=== PATIENT | male | born 1975 | race African-American/Black ===

== ENCOUNTER 2016-12-15 12:10 | Inpatient (IN) | payer BC ==
[2016-12-15 13:11] VITALS: BMI 26.7
--- NOTE | 2016-12-15 14:45 | HP ---
CIWA Score - CIWA Score Nausea/Vomitin Muscle Tremors: 2 Anxiety: 3 Agitation: 2 Paroxysmal Sweats: 3 Orientation: 0-Oriented Tacttile Disturbances: 1-Very Mild Itch/Numbness Auditory Disturbances: 0-None Visual Disturbances: 0-None Headache: 2-Mild CIWA-Ar Total Score: 15 Admission ROS BHS - HPI Chief Complaint: I need to stop using drugs and i need help. Allergies/Adverse Reactions: Allergies Allergy/AdvReac Type Severity Reaction Status Date / Time No Known Allergies Allergy Verified 12/15/16 14:26 History of Present Illness: 41 y/o m pt with h/o chronic alcoholism , pcp, cocaine use seeking detox. Exam Limitations: No Limitations - Ebola screening Have you traveled outside of the country in the last 21 days: No Have you had contact with anyone from an Ebola affected area: No Have you been sick,other than usual withdrawal symptoms: No Do you have a fever: No - Review of Systems Constitutional: Loss of Appetite, Malaise, Night Sweats, Changes in sleep EENT: reports: Blurred Vision Respiratory: reports: SOB with Exertion Cardiac: reports: Irregular Heart Rate GI: reports: Nausea : reports: No Symptoms Reported Musculoskeletal: reports: Back Pain Integumentary: reports: No Symptoms Reported Neuro: reports: Headache Endocrine: reports: No Symptoms Reported Hematology: reports: No Symptoms Reported Psychiatric: reports: Agitated, Anxious, Depressed Other Systems: Reviewed and Negative Patient History - Patient Medical History Hx Anemia: No Hx Asthma: No Hx Chronic Obstructive Pulmonary Disease (COPD): No Hx Cancer: No Hx Cardiac Disorders: No Hx Congestive Heart Failure: No Hx Hypertension: Yes (Pt has been non compliant) Hx Hypercholesterolemia: No Hx Pacemaker: No HX Cerebrovascular Accident: No Hx Seizures: No Hx Dementia: No Hx Diabetes: No Hx Gastrointestinal Disorders: No Hx Liver Disease: No Hx Genitourinary Disorders: No Hx Sexually Transmitted Disorders: No Hx Renal Disease (ESRD): No Hx Thyroid Disease: No Hx Human Immunodeficiency Virus (HIV): No Hx Hepatitis C: No Hx Depression: Yes Hx Suicide Attempt: Yes Hx Bipolar Disorder: Yes Hx Schizophrenia: Yes - Patient Surgical History Past Surgical History: Yes Hx Neurologic Surgery: No Hx Cataract Extraction: No Hx Cardiac Surgery: No Hx Lung Surgery: No Hx Breast Surgery: No Hx Breast Biopsy: No Hx Abdominal Surgery: No Hx Appendectomy: No Hx Cholecystectomy: No Hx Genitourinary Surgery: No Hx Section: No Hx Orthopedic Surgery: Yes (rods placed in R upper leg 2008) Anesthesia Reaction: No - PPD History Previous Implant?: Yes Documented Results: Positive w/proof Implanted On Prior R Admission?: No - Reproductive History Patient is a Female of Child Bearing Age (11 -55 yrs old): No - Smoking Cessation Smoking history: Current every day smoker Have you smoked in the past 12 months: Yes Aproximately how many cigarettes per day: 10 Cigars Per Day: 0 Hx Chewing Tobacco Use: No Initiated information on smoking cessation: Yes 'Breaking Loose' booklet given: 12/15/16 - Substance & Tx. History Hx Alcohol Use: Yes Hx Substance Use: Yes Substance Use Type: Alcohol, Cocaine Hx Substance Use Treatment: Yes - Substances Abused Alcohol Route: Oral Frequency: Daily Amount used: 12PK BEER/ FIFTH-cognac Age of first use: 14 Date of Last Use: 12/15/16 PCP Route: Smoking Frequency: Daily Amount used: 2 BAGS Age of first use: 15 Date of Last Use: 12/13/16 Cocaine Route: Inhalation Frequency: Daily Amount used: 1/2 GRAM Age of first use: 15 Date of Last Use: 12/15/16 Family Disease History - Family Disease History Family Disease History: Heart Disease: Mother (HTN; cardiac disease), Other: Sister (breast) Admission Physical Exam BHS - Vital Signs Vital Signs: Vital Signs - 24 hr 12/15/16 13:08 Temperature 97.9 F Pulse Rate 117 H Respiratory 20 Rate Blood Pressure 140/101 41 y/o m pt aox3 , anxious , but cooperative with exam ,, - Physical General Appearance: Yes: Disheveled, Tremorous, Sweating, Anxious HEENTM: Yes: EOMI, Hearing grossly Normal, Normocephalic, Normal Voice, JOSE Respiratory: Yes: Chest Non-Tender, Lungs Clear, Normal Breath Sounds, No Respiratory Distress Neck: Yes: Supple, Trachea in good position Breast: Yes: Within Normal Limits Cardiology: Yes: Regular Rhythm, S1, S2, Tachycardia Abdominal: Yes: Non Tender, Soft, Increased Bowel Sounds, Protuberent Genitourinary: Yes: Within Normal Limits Back: Yes: Decreased Range of Motion Musculoskeletal: Yes: Back pain Extremities: Yes: Tremors Neurological: Yes: handkerchief presser II-XII NML intact, Fully Oriented, Alert, Motor Strength 5/5, Normal Response Integumentary: Yes: Diaphoresis, Other (multiple tatoos overe head, face , body) Lymphatic: Yes: Within Normal Limits - Diagnostic (1) Alcohol dependence with uncomplicated withdrawal Current Visit: Yes Status: Chronic (2) PCP dependence Current Visit: Yes Status: Chronic (3) Cocaine dependence Current Visit: Yes Status: Chronic Qualifiers: Substance use status: uncomplicated Qualified Code(s): F14.20 - Cocaine dependence, uncomplicated (4) Hypertension Current Visit: Yes Status: Chronic Qualifiers: Hypertension type: essential hypertension Qualified Code(s): I10 - Essential (primary) hypertension (5) Nicotine dependence Current Visit: Yes Status: Chronic Qualifiers: Nicotine product type: cigarettes Substance use status: uncomplicated Qualified Code(s): F17.210 - Nicotine dependence, cigarettes, uncomplicated (6) Schizophrenia Current Visit: Yes Status: Chronic Qualifiers: Schizophrenia type: unspecified Qualified Code(s): F20.9 - Schizophrenia, unspecified Cleared for Admission [facility] - Detox or Rehab [facility] Level of Care: Medically Managed Detox Regimen/Protocol: Librium [facility] Breath Alcohol Content Breath Alcohol Content: 0.083 Urine Drug Screen - Results Drug Screen Negative: No Urine Drug Screen Results: OLEG-Cocaine, PCP-Phencyclidine
[2016-12-15] MEDS ORDERED: MAGNESIUM CITRATE 300 ML BOTTLE PO PRN (15:03)
[2016-12-15] MEDS ORDERED: MAGNESIUM HYDROX 2400MG/30ML ORAL SUSPENSION 30 ML CUP PO PRN (15:03)
[2016-12-15] MEDS ORDERED: guaiFENesin/D-METHORPHAN HB 10 ML UNIT-DOSE CUPS PO PRN (15:03)
[2016-12-15] MEDS ORDERED: MENTHOL/PHENOL 1 EACH UD MM PRN (15:03)
[2016-12-15] MEDS ORDERED: P-EPHED 60MG/TRIPROLIDI 2.5MG TABLET PO PRN (15:03)
[2016-12-15] MEDS ORDERED: MAG HYDROX/AL HYDROX/SIMETH 30 ML UNIT-DOSE CUP PO PRN (15:03)
[2016-12-15] MEDS ORDERED: IBUPROFEN 400 MG TABLET (FP) PO PRN (15:03)
[2016-12-15] MEDS ORDERED: chlordiazePOXIDE HCL 25 MG CAPSULE PO PRN (15:03)
[2016-12-15] MEDS ORDERED: ACETAMINOPHEN 325 MG TABLET (FP) PO PRN (15:03)
[2016-12-15] MEDS ORDERED: LOPERAMIDE HCL 2 MG CAPSULE PO PRN (15:03)
[2016-12-15] MEDS ORDERED: hydrOXYzine PAMOATE 25 MG CAPSULE (FP) PO PRN (15:03)
[2016-12-15] MEDS ORDERED: NICOTINE POLACRILEX 4 MG GUM BUC PRN (15:03)
[2016-12-15] MEDS: chlordiazePOXIDE HCL 25 MG CAPSULE PO SCH ×2 (18:15→22:17)
[2016-12-15 19:50] LABS: URINE APPEARANCE CLEAR; URINE BILIRUBIN NEGATIVE (NEGATIVE); URINE COLOR STRAW; URINE GLUCOSE (UA) NEGATIVE (NEGATIVE); URINE KETONE NEGATIVE (NEGATIVE); URINE LEUK ESTERASE NEGATIVE (NEGATIVE); URINE NITRITE NEGATIVE (NEGATIVE); URINE PROTEIN NEGATIVE (NEGATIVE); URINE UROBILINOGEN NEGATIVE E.U./dl (0.2-1.0)
[2016-12-15 20:02] LABS: URINE BLOOD 2+ (NEGATIVE)
[2016-12-15 20:23] LABS: URINE RBC 1 /hpf (0-3); URINE WBC <1 /hpf (3-5)
[2016-12-15] MEDS: diphenhydrAMINE HCL 50 MG CAPSULE PO PRN (22:17)
[2016-12-15] MEDS: THIAMINE HCL 100 MG TABLET (FP) PO SCH (22:17)
[2016-12-16] MEDS: chlordiazePOXIDE HCL 25 MG CAPSULE PO SCH ×4 (05:29→22:16)
[2016-12-16 10:00] LABS: MCH 28.5 pg (25.7-33.7); MCHC 32.7 g/dl (32.0-35.9); MEAN PLT VOLUME 8.3 fl (7.5-11.1); PLATELET COUNT 255 K/MM3 (134-434); RDW 14.7 % (11.9-15.9); WHITE BLOOD COUNT 8.7 K/mm3 (4.0-10.0)
[2016-12-16 10:01] LABS: ANION GAP 11 (8-16); CALCIUM 9.4 mg/dL (8.5-10.1); CO2 30 mmol/L (21-32); GLUCOSE,RANDOM 86 mg/dL (74-106)
[2016-12-16 10:06] LABS: ALK PHOS 87 U/L (45-117); BILIRUBIN,TOTAL 0.4 mg/dL (0.2-1.0); CREATININE 1.2 mg/dL (0.7-1.3); SGOT/AST 28 U/L (15-37); SGPT/ALT 28 U/L (12-78); TOT PROT 8.7 g/dl (6.4-8.2)
--- NOTE | 2016-12-16 10:11 | EKG ---
Test Reason : Blood Pressure : / mmHG Vent. Rate : 102 BPM Atrial Rate : 102 BPM P-R Int : 150 ms QRS Dur : 084 ms QT Int : 354 ms P-R-T Axes : 037 050 020 degrees QTc Int : 461 ms SINUS TACHYCARDIA MINIMAL VOLTAGE CRITERIA FOR LVH, MAY BE NORMAL VARIANT BORDERLINE ECG NO PREVIOUS ECGS AVAILABLE Confirmed by SACHA ARREDONDO, EUGENE ([id number]) on 12/16/2016 10:11:10 AM Referred By: Confirmed By:EUGENE GONCALVES MD
[2016-12-16] MEDS: amLODIPine BESYLATE 2.5 MG TABLET (FP) PO SCH (10:18)
[2016-12-16] MEDS: NICOTINE 21 MG/24 HOURS TOPICAL PATCH TD SCH (10:18)
[2016-12-16] MEDS: PRENATAL VITAMINS W/ FOLIC ACID TABLET (FP) PO SCH (10:18)
--- NOTE | 2016-12-16 15:12 | PN ---
S CIWA - CIWA Score Nausea/Vomitin-No Nausea/No Vomiting Muscle Tremors: 4-Moderate,w/Arms Extend Anxiety: 4-Mod. Anxious/Guarded Agitation: 4-Moderately Restless Paroxysmal Sweats: 3 Orientation: 0-Oriented Tacttile Disturbances: 0-None Auditory Disturbances: 0-None Visual Disturbances: 0-None Headache: 0-None Present CIWA-Ar Total Score: 15 BHS Progress Note (SOAP) Subjective: Anxiety,tremors,sweating,interrupted sleep,restless. Objective: 12/16/16 15:11 Vital Signs - 8 hr 12/16/16 12/16/16 09:27 13:02 Temperature 97.6 F 97.2 F L Pulse Rate 113 H 94 H Respiratory 20 18 Rate Blood Pressure 117/70 145/82 Laboratory Tests 12/15/16 12/16/16 12/16/16 19:37 06:00 06:00 WBC 8.7 D RBC 5.25 D Hgb 15.0 D Hct 45.7 D MCV 87.0 MCHC 32.7 RDW 14.7 Plt Count 255 MPV 8.3 Sodium 140 Potassium 3.7 Chloride 99 Carbon Dioxide 30 Anion Gap 11 BUN 7 D Creatinine 1.2 Creat Clearance w eGFR > 60 Random Glucose 86 Calcium 9.4 Total Bilirubin 0.4 D AST 28 D ALT 28 D Alkaline Phosphatase 87 Total Protein 8.7 H D Albumin 4.0 D Urine Color Straw Urine Appearance Clear Urine pH 5.0 Ur Specific [place] 1.003 Urine Protein Negative Urine Glucose (UA) Negative Urine Ketones Negative Urine Blood 2+ H Urine Nitrite Negative Urine Bilirubin Negative Urine Urobilinogen Negative Ur Leukocyte Esterase Negative Urine RBC 1 Urine WBC <1 Ur Epithelial Cells Rare RPR Titer 12/16/16 06:00 WBC RBC Hgb Hct MCV MCHC RDW Plt Count MPV Sodium Potassium Chloride Carbon Dioxide Anion Gap BUN Creatinine Creat Clearance w eGFR Random Glucose Calcium Total Bilirubin AST ALT Alkaline Phosphatase Total Protein Albumin Urine Color Urine Appearance Urine pH Ur Specific [place] Urine Protein Urine Glucose (UA) Urine Ketones Urine Blood Urine Nitrite Urine Bilirubin Urine Urobilinogen Ur Leukocyte Esterase Urine RBC Urine WBC Ur Epithelial Cells RPR Titer Nonreactive labs noted Assessment: 12/16/16 15:12 Withdrawal sx. Plan: Continue detox
--- NOTE | 2016-12-16 17:00 | CONSULT ---
[facility] Psychiatric Consult - Data Date of interview: 12/16/16 Admission source: [facility] Identifying data: Another admission to [facility] for this 41 y/o AA male seeking detox treatment on for alcohol,phencyclidine and cocaine dependence.Patient is ,a father of five,currently homeless,unemployed and supported on [employer] benefits. Substance Abuse History: - Smoking Cessation. Smoking history: Current every day smoker. Have you smoked in the past 12 months: Yes. Aproximately how many cigarettes per day: 10. Cigars Per Day: 0. Hx Chewing Tobacco Use: No. Initiated information on smoking cessation: Yes. 'Breaking Loose' booklet given : 12/15/16. - Substance & Tx. History. Hx Alcohol Use: Yes. Hx Substance Use : Yes. Substance Use Type: Alcohol, Cocaine. Hx Substance Use Treatment: Yes. - Substances Abused. Alcohol. Route: Oral. Frequency: Daily. Amount used: 12PK BEER/ FIFTH-cognac. Age of first use: 14. Date of Last Use: . PCP. Route: Smoking. Frequency: Daily. Amount used: 2 BAGS. Age of first use: 15. Date of Last Use: 12/13/16. Cocaine. Route: Inhalation. Frequency: Daily. Amount used: 1/2 GRAM. Age of first use: 15. Date of Last Use: 12/15/16. Confirmed by patient. Medical History: Hypertension and a history of orthosurgery for injury to right leg in 2007 (hardware in situ). Psychiatric History: History of multiple psychiatric hospitalizations.Diagnosed with "bipolar disorder and schizophrenia".Known to [facility] and [facility].Lost to follow up for several months.Non-adherence to aftercare.Mr Almazan states that he has not taken his haldol decanoate injection for several months (no recall of date of last injection).Patient reports that he is currently on risperdal and trazodone (doses not remembered) .He endorses complaint of chronic insomnia and he requests 50mg of trazodone at bedtime.Mr Almazan admits to a remote history of suicidal ideation hat did not escalate into a suicide attempt. Physical/Sexual Abuse/Trauma History: Patient denies. Additional Comment: Urine Drug Screen Results: OLEG-Cocaine, PCP- Phencyclidine.Noted. Mental Status Exam - Mental Status Exam Alert and Oriented to: Time, Place, Person Cognitive Function: Good Patient Appearance: Disheveled Mood: Apprehensive, Hopeful Affect: Mood Congruent Patient Behavior: Fatigued, Appropriate, Cooperative Speech Pattern: Clear, Appropriate Voice Loudness: Normal Thought Process: Goal Oriented Thought Disorder: Not Present Hallucinations: Denies Suicidal Ideation: Denies Homicidal Ideation: Denies Insight/Judgement: Poor Sleep: Poorly, Difficulty falling asleep Appetite: Good Muscle strength/Tone: Normal Gait/Station: Normal Psychiatric Findings - Problem List ([place] 1, 2,3) (1) Alcohol dependence with uncomplicated withdrawal Current Visit: Yes Status: Acute (2) Cocaine dependence Current Visit: Yes Status: Acute Qualifiers: Substance use status: uncomplicated Qualified Code(s): F14.20 - Cocaine dependence, uncomplicated (3) Nicotine dependence Current Visit: Yes Status: Acute Qualifiers: Nicotine product type: cigarettes Substance use status: uncomplicated Qualified Code(s): F17.210 - Nicotine dependence, cigarettes, uncomplicated (4) PCP dependence Current Visit: Yes Status: Acute (5) Schizophrenia Current Visit: Yes Status: Chronic Qualifiers: Schizophrenia type: unspecified Qualified Code(s): F20.9 - Schizophrenia, unspecified (6) Hypertension Current Visit: Yes Status: Chronic Qualifiers: Hypertension type: essential hypertension Qualified Code(s): I10 - Essential (primary) hypertension (7) Insomnia Current Visit: Yes Status: Acute - Initial Treatment Plan Initial Treatment Plan: Psychoeducation.Detoxification.Medications : trazodone 50 mg po hs + risperdal 1 mg po bid.Side effects/benefits discussed with this patient.Made aware of risk for priapism (trazodone),abnormal involuntary movements,EPS (akathisia,akinesia,dystonias,dyskinesias),endocrine complications (sexual impotence,galactorrhea,gynecomastia),metabolic syndrome ( risperdal).Patient waives these risks and agrees to follow this careplan.Observation.
[2016-12-16] MEDS: traZODone HCL 50 MG TABLET (FP) PO SCH (22:16)
[2016-12-16] MEDS: risperiDONE 1 MG TABLET (FP) PO SCH (22:16)
[2016-12-16] MEDS: THIAMINE HCL 100 MG TABLET (FP) PO SCH (22:16)
[2016-12-16] MEDS: diphenhydrAMINE HCL 50 MG CAPSULE PO PRN (22:17)
[2016-12-17] MEDS: chlordiazePOXIDE HCL 25 MG CAPSULE PO SCH ×2 (05:45→10:35)
--- NOTE | 2016-12-17 10:23 | PN ---
S CIWA - CIWA Score Nausea/Vomitin-Mild Nausea/No Vomiting Muscle Tremors: 4-Moderate,w/Arms Extend Anxiety: 4-Mod. Anxious/Guarded Agitation: 3 Paroxysmal Sweats: 3 Orientation: 0-Oriented Tacttile Disturbances: 0-None Auditory Disturbances: 0-None Visual Disturbances: 0-None Headache: 0-None Present CIWA-Ar Total Score: 15 BHS Progress Note (SOAP) Subjective: Anxiety,sweating,interrupted sleep,restless Objective: 12/17/16 10:23 Vital Signs - 8 hr 12/17/16 12/17/16 12/17/16 03:30 06:23 09:12 Temperature 95.2 F L 96 F L Pulse Rate 94 H 103 H Respiratory 18 18 18 Rate Blood Pressure 133/84 128/76 Laboratory Tests 12/15/16 12/16/16 12/16/16 19:37 06:00 06:00 WBC 8.7 D RBC 5.25 D Hgb 15.0 D Hct 45.7 D MCV 87.0 MCHC 32.7 RDW 14.7 Plt Count 255 MPV 8.3 Sodium 140 Potassium 3.7 Chloride 99 Carbon Dioxide 30 Anion Gap 11 BUN 7 D Creatinine 1.2 Creat Clearance w eGFR > 60 Random Glucose 86 Calcium 9.4 Total Bilirubin 0.4 D AST 28 D ALT 28 D Alkaline Phosphatase 87 Total Protein 8.7 H D Albumin 4.0 D Urine Color Straw Urine Appearance Clear Urine pH 5.0 Ur Specific [place] 1.003 Urine Protein Negative Urine Glucose (UA) Negative Urine Ketones Negative Urine Blood 2+ H Urine Nitrite Negative Urine Bilirubin Negative Urine Urobilinogen Negative Ur Leukocyte Esterase Negative Urine RBC 1 Urine WBC <1 Ur Epithelial Cells Rare RPR Titer 12/16/16 06:00 WBC RBC Hgb Hct MCV MCHC RDW Plt Count MPV Sodium Potassium Chloride Carbon Dioxide Anion Gap BUN Creatinine Creat Clearance w eGFR Random Glucose Calcium Total Bilirubin AST ALT Alkaline Phosphatase Total Protein Albumin Urine Color Urine Appearance Urine pH Ur Specific [place] Urine Protein Urine Glucose (UA) Urine Ketones Urine Blood Urine Nitrite Urine Bilirubin Urine Urobilinogen Ur Leukocyte Esterase Urine RBC Urine WBC Ur Epithelial Cells RPR Titer Nonreactive labs noted Assessment: 12/17/16 10:23 Withdrawal sx. Plan: Continue detox
[2016-12-17] MEDS: risperiDONE 1 MG TABLET (FP) PO SCH ×2 (10:35→22:20)
[2016-12-17] MEDS: PRENATAL VITAMINS W/ FOLIC ACID TABLET (FP) PO SCH (10:35)
[2016-12-17] MEDS: amLODIPine BESYLATE 2.5 MG TABLET (FP) PO SCH (10:35)
[2016-12-17] MEDS: NICOTINE 21 MG/24 HOURS TOPICAL PATCH TD SCH (10:35)
[2016-12-17] MEDS: chlordiazePOXIDE 5 MG CAPSULE PO SCH ×2 (17:24→22:20)
[2016-12-17] MEDS: traZODone HCL 50 MG TABLET (FP) PO SCH (22:19)
[2016-12-17] MEDS: THIAMINE HCL 100 MG TABLET (FP) PO SCH (22:19)
[2016-12-18] MEDS: chlordiazePOXIDE 5 MG CAPSULE PO SCH ×2 (05:30→10:22)
[2016-12-18] MEDS: NICOTINE 21 MG/24 HOURS TOPICAL PATCH TD SCH (10:22)
[2016-12-18] MEDS: risperiDONE 1 MG TABLET (FP) PO SCH ×2 (10:22→22:19)
[2016-12-18] MEDS: amLODIPine BESYLATE 2.5 MG TABLET (FP) PO SCH (10:22)
[2016-12-18] MEDS: PRENATAL VITAMINS W/ FOLIC ACID TABLET (FP) PO SCH (10:22)
--- NOTE | 2016-12-18 10:54 | PN ---
BHS Progress Note (SOAP) Subjective: DECREASED ANXIETY,SWEATS,TREMORS. Objective: 12/18/16 10:54 Vital Signs Temperature 95.8 F L 12/18/16 10:37 Pulse Rate 95 H 12/18/16 10:37 Respiratory Rate 20 12/18/16 10:37 Blood Pressure 141/82 12/18/16 10:37 O2 Sat by Pulse Oximetry (%) Assessment: 12/18/16 10:54 WITHDRAWAL SX Plan: CONTINUE DETOX
[2016-12-18] MEDS: chlordiazePOXIDE HCL 10 MG CAPSULE PO SCH ×2 (17:21→22:20)
[2016-12-18] MEDS: THIAMINE HCL 100 MG TABLET (FP) PO SCH (22:19)
[2016-12-18] MEDS: traZODone HCL 50 MG TABLET (FP) PO SCH (22:20)
[2016-12-19] MEDS: chlordiazePOXIDE HCL 10 MG CAPSULE PO SCH (05:32)
[2016-12-19 09:41] VITALS: BP 139/75; PULSE 105; TEMP 97.1
--- NOTE | 2016-12-19 09:44 | DS ---
[facility] Detox Discharge Summary Admission Date: 12/15/16 Discharge Date: 12/19/16 - History Present History: Alcohol Dependence, Cocaine Dependence Pertinent Past History: HTN Schizophrenia - Physical Exam Results Vital Signs: Vital Signs Temperature 97.1 F L 12/19/16 09:40 Pulse Rate 105 H 12/19/16 09:40 Respiratory Rate 18 12/19/16 09:40 Blood Pressure 139/75 12/19/16 09:40 O2 Sat by Pulse Oximetry (%) Pertinent Admission Physical Exam Findings: Withdrawal sx. Laboratory Last Values WBC 8.7 K/mm3 (4.0-10.0) D 12/16/16 06:00 RBC 5.25 M/mm3 (4.00-5.60) D 12/16/16 06:00 Hgb 15.0 GM/dL (11.7-16.9) D 12/16/16 06:00 Hct 45.7 % (35.4-49) D 12/16/16 06:00 MCV 87.0 fl (80-96) 12/16/16 06:00 MCHC 32.7 g/dl (32.0-35.9) 12/16/16 06:00 RDW 14.7 % (11.9-15.9) 12/16/16 06:00 Plt Count 255 K/MM3 (134-434) 12/16/16 06:00 MPV 8.3 fl (7.5-11.1) 12/16/16 06:00 Sodium 140 mmol/L (136-145) 12/16/16 06:00 Potassium 3.7 mmol/L (3.5-5.1) 12/16/16 06:00 Chloride 99 mmol/L (98-107) 12/16/16 06:00 Carbon Dioxide 30 mmol/L (21-32) 12/16/16 06:00 Anion Gap 11 (8-16) 12/16/16 06:00 BUN 7 mg/dL (7-18) D 12/16/16 06:00 Creatinine 1.2 mg/dL (0.7-1.3) 12/16/16 06:00 Creat Clearance w eGFR > 60 (>60) 12/16/16 06:00 Random Glucose 86 mg/dL (74-106) 12/16/16 06:00 Calcium 9.4 mg/dL (8.5-10.1) 12/16/16 06:00 Total Bilirubin 0.4 mg/dL (0.2-1.0) D 12/16/16 06:00 AST 28 U/L (15-37) D 12/16/16 06:00 ALT 28 U/L (12-78) D 12/16/16 06:00 Alkaline Phosphatase 87 U/L (45-117) 12/16/16 06:00 Total Protein 8.7 g/dl (6.4-8.2) H D 12/16/16 06:00 Albumin 4.0 g/dl (3.4-5.0) D 12/16/16 06:00 Urine Color Straw 12/15/16 19:37 Urine Appearance Clear 12/15/16 19:37 Urine pH 5.0 (5.0-8.0) 12/15/16 19:37 Ur Specific [place] 1.003 (1.001-1.035) 12/15/16 19:37 Urine Protein Negative (NEGATIVE) 12/15/16 19:37 Urine Glucose (UA) Negative (NEGATIVE) 12/15/16 19:37 Urine Ketones Negative (NEGATIVE) 12/15/16 19:37 Urine Blood 2+ (NEGATIVE) H 12/15/16 19:37 Urine Nitrite Negative (NEGATIVE) 12/15/16 19:37 Urine Bilirubin Negative (NEGATIVE) 12/15/16 19:37 Urine Urobilinogen Negative E.U./dl (0.2-1.0) 12/15/16 19:37 Ur Leukocyte Esterase Negative (NEGATIVE) 12/15/16 19:37 Urine RBC 1 /hpf (0-3) 12/15/16 19:37 Urine WBC <1 /hpf (3-5) 12/15/16 19:37 Ur Epithelial Cells Rare /hpf (FEW) 12/15/16 19:37 RPR Titer Nonreactive (NONREACTIVE) 12/16/16 06:00 labs noted - Treatment Hospital Course: Detox Protocol Followed, Detoxed Safely, Responded well, Discharged Condition Good, Rehab Referral Accepted - Medication Discharge Medications: Ambulatory Orders Haloperidol Decanoate [Haldol Decanoate (Long-Acting) -] 250 mg IM MONTHLY 03/28 Amlodipine Besylate [Norvasc -] 2.5 mg PO DAILY #0 tablet 08/07/16 Risperidone [Risperdal] 3 mg PO BID 12/15/16 Trazodone HCl [Desyrel -] 150 mg PO HS 12/15/16 - Diagnosis (1) Alcohol dependence with uncomplicated withdrawal Current Visit: Yes Status: Acute (2) Cocaine dependence Current Visit: Yes Status: Acute Qualifiers: Substance use status: uncomplicated Qualified Code(s): F14.20 - Cocaine dependence, uncomplicated (3) Insomnia Current Visit: Yes Status: Acute (4) Nicotine dependence Current Visit: Yes Status: Acute Qualifiers: Nicotine product type: cigarettes Substance use status: uncomplicated Qualified Code(s): F17.210 - Nicotine dependence, cigarettes, uncomplicated (5) Hypertension Current Visit: Yes Status: Chronic Qualifiers: Hypertension type: essential hypertension Qualified Code(s): I10 - Essential (primary) hypertension (6) Schizophrenia Current Visit: Yes Status: Chronic Qualifiers: Schizophrenia type: unspecified Qualified Code(s): F20.9 - Schizophrenia, unspecified - AMA Did Patient Leave Against Medical Advice: No
== END 2016-12-19 10:15 | disposition home or self-care (01) | DRG 774 ==
LOC: YASAS 12:10 → Y3N 15:36
PROVIDERS: ADMIT Internal Medicine; ATTEND Internal Medicine
PROC: HZ2ZZZZ Detoxification Services for Substance Abuse Treatment (ICD-10-PCS; principal; 2016-12-19)
DX: F10.230 Alcohol dependence with withdrawal, uncomplicated (principal); F14.20 Cocaine dependence, uncomplicated; F16.20 Hallucinogen dependence, uncomplicated; F17.210 Nicotine dependence, cigarettes, uncomplicated; F20.9 Schizophrenia, unspecified; G47.00 Insomnia, unspecified; I10 Essential (primary) hypertension
CPT/HCPCS: 36415; 71020-TC; 80053; 81003; 81015; 85027; 86593; 93005; 93010; J2794